=== PATIENT | female | born 1950 | race Caucasian/White ===

== ENCOUNTER → 2016-06-14 | Outpatient (CLI) | payer OTHER ==
[~2016-06-14] MED LIST: FLUO20CA36 PO; LEVO75TA5 PO
[2016-06-14 17:34] LABS: THYROID STIMULATING HORMONE 3.24 uIu/ml (0.300-4.500)
== END | disposition home or self-care (01) ==
LOC: C.LAB 16:02
PROVIDERS: ATTEND Physician Assistant
DX: E03.9 Hypothyroidism, unspecified (principal)